=== PATIENT | female | born 1980 | race Caucasian/White ===

== ENCOUNTER → 2025-03-05 | Outpatient (CLI) | payer BC ==
[~2025-03-05] MED LIST: DAILY VITAMIN1 EAC1 PO; MACROBID100 M1 PO; MAGNESIUM100 M1 PO; NORCO 10-325 T1 EACH PO; VALIUM2 MG PO; WELLBUTRIN75 MG PO; XANAX1 MG PO
[2025-03-05 10:01] LABS: MEAN CELL VOLUME 69.8 fl (81.0-99.0); MEAN CORPUSCULAR HGB 18.6 pg (27.0-31.0); MEAN PLATELET VOLUME 10.0 fl (9.6-12.3); NUCLEATED RED BLOOD CELL 0.0 % (0.0-0.0); NUCLEATED RED BLOOD CELL 0.0 10*3/uL (0.0-0.0); PLATELET COUNT AUTOMATED 340.0 10*3/uL (130-400); RED CELL DISTRI WIDTH 17.2 % (0-14.5)
[2025-03-05 11:00] LABS: BUN 10 mg/dl (9-23); FREE T4 0.99 ng/dl (0.89-1.76); LDL CHOLESTEROL 86 mg/dL (9-159); SGPT/ALT 16 U/L (5-49)
[2025-03-05 11:01] LABS: VITAMIN D, 25-HYDROXY 27.6 ng/mL (30-100)
== END | disposition home or self-care (01) ==
LOC: LAB 00:23 → US 09:30
PROVIDERS: ATTEND Family Medicine
DX: D25.9 Leiomyoma of uterus, unspecified (principal); N83.202 Unspecified ovarian cyst, left side; N83.201 Unspecified ovarian cyst, right side; D64.9 Anemia, unspecified